=== PATIENT | male | born 1945 | race Caucasian/White ===

== ENCOUNTER → 2018-04-08 11:44 | Outpatient (CLI) | payer MEDICARE, SELFPAY ==
[2018-04-08 11:31] VITALS: BMI 26.4
[2018-04-08 13:27] LABS: Cholesterol 140 mg/dL (200); High Density Lipoprotein 55 mg/dL; Triglycerides 72 mg/dL; Very Low Density Lipoprotein 14 mg/dL (5-40)
== END ==
PROVIDERS: PCP Family Medicine; Visit Provider Family Medicine
DX: E78.5 Hyperlipidemia, unspecified (principal)
CPT/HCPCS: 36415; 80061

== ENCOUNTER → 2018-05-13 08:24 | Outpatient (CLI) | payer MEDICARE, SELFPAY ==
[2018-05-12 15:32] VITALS: BMI 26.7
--- NOTE | 2018-05-12 16:00 | LES_PTH ---
PATIENT: TEVIN BOGGS LOC: [facility] U#:[id number] AGE/SX: 79/M ROOM: RE05/13/[address]: Dr. Jaret Arora DO : 1945 BED: DIS: SPEC #: [id number] RECD: 05/13/18 11:59 STATUS: NICOLASA CARMEN #: [id number] DANILO: 05/12/18 16:[address]: Jaret Arora DEPT: SURGICAL PATHOLOGY RECD BY: Heath Torres Tissues: Skin of forearm, NOS Procedures: Surgery Specimen Level IV HEADER OPERATION: Not noted PRE-OP DIAGNOSIS: Benign neoplasm skin right forearm TISSUE SUBMITTED: Right forearm MICROSCOPIC DIAGNOSIS Right forearm lesion, shave biopsy: Actinic keratosis with mild atypia and with focal ulceration, associated inflammation and granulation tissue reaction. Solar elastosis. Negative for malignancy. SJ:audrey 05/14/18 COMMENT Case has been reviewed in consultation with Dr. Moon who concurs with the above diagnosis. IDC:AM MICROSCOPIC DESCRIPTION Slides are reviewed. GROSS DESCRIPTION Received is one container labeled with the patient's name and not further designated. The specimen consists of a disc of light hackett shaved skin measuring 0.9 x 0.6 x 0.2 cm. The cutaneous surface displays a hyperpigmented lesion measuring 0.5 cm in greatest dimension. The specimen is inked, bisected and totally submitted in one cassette. / LUCILLE:audrey 05/13/18 TC:5 CPT: 62609
== END ==
PROVIDERS: PCP Family Medicine; Visit Provider Family Medicine
DX: D23.62 Other benign neoplasm of skin of left upper limb, including shoulder (principal)
CPT/HCPCS: 88305

== ENCOUNTER → 2018-10-20 10:12 | Outpatient (CLI) | payer MEDICARE, SELFPAY ==
[2018-10-20 09:44] VITALS: BMI 26.7
[2018-10-20 12:41] LABS: Absolute Lymphocyte Count 1.74 X10^3/uL (0.83-4.51); Absolute Neutrophil Count 2.7 X10^3/uL (2.0-7.7); Basophil# 0.04 X10^3/uL; Basophil% 0.8 % (0-1); Eosinophil# 0.07 X10^3/uL; Eosinophils% 1.4 % (0-5); Hematocrit 47.6 % (40-54); Hemoglobin 15.6 g/dL (13.0-16.5); Lymphocyte # 1.74 X10^3/ul (4.0); Lymphocyte % 33.9 % (19-41); Mean Corp Hgb Conc 32.8 g/dL (32-36); Mean Corpuscular Hgb 30.7 pg (27.0-32.0); Mean Corpuscular Volume 93.7 fL (80-94); Mean Platelet Vol. 11.9 fl (6.2-12.0); Monocyte# 0.58 X10^3/uL; Monocyte% 11.3 % (0-10); NRBC Flagged by Analyzer 0 % (0-5); Neutrophil # 2.68 X10^3/uL (2.7-7.7); Platelet Count 155 K/mm3 (150-450); RBC Distribution Width CV 12.4 % (11.6-14.6); RBC Distribution Width SD 42.7 fl (35.1-43.9); Red Blood Count 5.08 M/mm3 (4.6-6.2); White Blood Count 5.1 K/mm3 (4.4-11.0)
[2018-10-20 13:19] LABS: ALB/GLOB Ratio 1.3 RATIO (0.9-2.4); AST(SGOT) 21 U/L (15-37); Alanine Aminotransfer ALT/SGPT 42 U/L (16-61); Albumin, Serum 3.8 g/dL (3.2-5.0); Alkaline Phosphatase 77 U/L (45-117); Anion Gap 4 (5-15); BUN 17 mg/dL (7-18); BUN/Creat Ratio 18.1 RATIO (10-20); Calcium,Total 8.5 mg/dL (8.5-10.1); Chloride 107 mmol/L (98-107); Cholesterol 146 mg/dL (200); Creatinine, Serum 0.94 mg/dL (0.70-1.30); EST Glomerular Filtration Rate 84 mL/min (>60); Est Glom Filt Rate - Afr Amer 102 mL/min (>60); Glucose 94 mg/dL (74-106); High Density Lipoprotein 62 mg/dL; Potassium 4.8 mmol/L (3.5-5.1); Protein, Total 6.8 g/dL (6.4-8.2); Sodium Level 140 mmol/L (136-145); Triglycerides 44 mg/dL; Very Low Density Lipoprotein 9 mg/dL (5-40)
== END ==
PROVIDERS: PCP Family Medicine; Visit Provider Family Medicine
DX: E78.2 Mixed hyperlipidemia (principal); R23.8 Other skin changes
CPT/HCPCS: 36415; 80053; 80061; 85025

== ENCOUNTER → 2019-04-20 09:55 | Outpatient (CLI) | payer MEDICARE, SELFPAY ==
[2019-04-20 09:47] VITALS: BMI 26.7
[2019-04-20 12:51] LABS: Cholesterol 151 mg/dL (200); High Density Lipoprotein 57 mg/dL; Triglycerides 60 mg/dL; Very Low Density Lipoprotein 12 mg/dL (5-40)
== END ==
PROVIDERS: PCP Family Medicine; Referring Provider Family Medicine; Visit Provider Family Medicine
DX: E78.2 Mixed hyperlipidemia (principal)
CPT/HCPCS: 36415; 80061

== ENCOUNTER → 2019-10-19 10:04 | Outpatient (CLI) | payer MEDICARE, SELFPAY ==
[2019-10-19 09:36] VITALS: BMI 26.7
[2019-10-19 12:22] LABS: ALB/GLOB Ratio 1.3 RATIO (0.9-2.4); AST(SGOT) 23 U/L (15-37); Alanine Aminotransfer ALT/SGPT 37 U/L (16-61); Albumin, Serum 3.9 g/dL (3.2-5.0); Alkaline Phosphatase 79 U/L (45-117); Anion Gap 2 (5-15); BUN 15 mg/dL (7-18); BUN/Creat Ratio 16.1 RATIO (10-20); Calcium,Total 8.6 mg/dL (8.5-10.1); Chloride 106 mmol/L (98-107); Cholesterol 161 mg/dL (200); Creatinine, Serum 0.93 mg/dL (0.70-1.30); EST Glomerular Filtration Rate 85 mL/min (>60); Est Glom Filt Rate - Afr Amer 102 mL/min (>60); Globulin 3.1 g/dL (2.2-4.2); Glucose 93 mg/dL (74-106); High Density Lipoprotein 60 mg/dL; Potassium 5.3 mmol/L (3.5-5.1); Sodium Level 140 mmol/L (136-145); Triglycerides 71 mg/dL; Very Low Density Lipoprotein 14 mg/dL (5-40)
== END ==
PROVIDERS: PCP Family Medicine; Referring Provider Family Medicine; Visit Provider Family Medicine
DX: E78.5 Hyperlipidemia, unspecified (principal)
CPT/HCPCS: 36415; 80053; 80061

== ENCOUNTER → 2019-11-15 13:08 | Outpatient (CLI) | payer MEDICARE, SELFPAY ==
--- NOTE | 2019-11-15 11:30 | TISS_PTH ---
PATIENT: TEVIN BOGGS LOC: [facility] U#:[id number] AGE/SX: 79/M ROOM: RE11/15/[address]: Dr. Jaret Arora DO : 1945 BED: DIS: SPEC #: [id number] RECD: 11/15/19 15:01 STATUS: NICOLASA CARMEN #: [id number] DANILO: 11/15/19 11:[address]: Jaret Arora DEPT: SURGICAL PATHOLOGY RECD BY: Yamile Murphy Tissues: A - Skin of upper extremity and shoulder B - Skin of forearm, NOS Procedures: Surgery Specimen Level IV HEADER OPERATION: Biopsy PRE-OP DIAGNOSIS: Basal cell carcinoma TISSUE SUBMITTED: A - Left shoulder, B - Right forearm MICROSCOPIC DIAGNOSIS A. Left shoulder lesion, shave biopsy: Basal cell carcinoma with superficial ulceration and associated inflammation. B. Right forearm lesion, shave biopsy: Basal cell carcinoma with superficial ulceration and associated inflammation. SJ:audrey 11/17/19 MICROSCOPIC DESCRIPTION Slides are reviewed. GROSS DESCRIPTION A - Received in fixative is one container labeled with the patient's name and designated left shoulder. The specimen consists of a light hackett shave biopsy of skin measuring 1 x 0.8 x 0.2 cm. The specimen is inked, serially sectioned and totally submitted in one cassette. B - Received in fixative is one container labeled with the patient's name and designated right forearm. The specimen consists of a light hackett shave biopsy of skin measuring 0.6 x 0.5 x 0.2 cm. The specimen is inked, bisected and totally submitted in one cassette. / AM:audrey 11/15/29 TC:0 [facility]: [id number] x2
[2019-11-15 11:31] VITALS: BMI 26.7
== END ==
PROVIDERS: PCP Family Medicine; Referring Provider Family Medicine; Visit Provider Family Medicine
DX: C44.619 Basal cell carcinoma of skin of left upper limb, including shoulder (principal)
CPT/HCPCS: 88305

== ENCOUNTER → 2020-04-18 09:55 | Outpatient (CLI) | payer MEDICARE, SELFPAY ==
[2020-01-18 10:02] VITALS: BMI 26.3
--- NOTE | 2020-04-18 10:00 | LES_PTH ---
PATIENT: TEVIN BOGGS LOC: [facility] U#:[id number] AGE/SX: 79/M ROOM: RE04/18/[address]: Dr. Jaret Arora DO : 1945 BED: DIS: SPEC #: [id number] RECD: 04/18/20 15:03 STATUS: NICOLASA CARMEN #: [id number] DANILO: 04/18/20 10:[address]: Jaret Arora DEPT: SURGICAL PATHOLOGY RECD BY: Génesis Padilla Tissues: Skin of neck, NOS Procedures: Surgery Specimen Level IV HEADER OPERATION: Excise skin lesion PRE-OP DIAGNOSIS: Neck skin lesions TISSUE SUBMITTED: Neck skin lesions MICROSCOPIC DIAGNOSIS Neck lesion, biopsy: Basal cell carcinoma with superficial ulceration and associated inflammation (0.8 cm in greatest dimension). Solar elastosis. See comment. HARPER:audrey 04/20/2020 COMMENT The tumor is present at the deep resection of the specimen. MICROSCOPIC DESCRIPTION Slides are reviewed. GROSS DESCRIPTION Received in fixative is one container labeled with the patient's name and designated neck. The specimen consists of a piece of hackett-white skin measuring 0.9 x 0.8 x 0.1 cm. The skin surface shows an area of ulceration. The specimen is inked and submitted entirely in one cassette. It will be serially sectioned at the time of embedding. / SJ:rg 04/19/2020 TC:0 CPT: 95097
[2020-04-18 12:24] LABS: Cholesterol 168 mg/dL (200); High Density Lipoprotein 63 mg/dL; Triglycerides 55 mg/dL; Very Low Density Lipoprotein 11 mg/dL (5-40)
== END ==
PROVIDERS: PCP Family Medicine; Referring Provider Family Medicine; Visit Provider Family Medicine
DX: E78.5 Hyperlipidemia, unspecified (principal); L98.9 Disorder of the skin and subcutaneous tissue, unspecified
CPT/HCPCS: 36415; 80061; 88305

== ENCOUNTER → 2021-01-17 10:35 | Outpatient (CLI) | payer MEDICARE, SELFPAY ==
[2021-01-17 12:33] LABS: ALB/GLOB Ratio 1.3 RATIO (0.9-2.4); AST(SGOT) 22 U/L (15-37); Alanine Aminotransfer ALT/SGPT 35 U/L (16-61); Albumin, Serum 3.8 g/dL (3.2-5.0); Alkaline Phosphatase 76 U/L (45-117); Anion Gap 4 (5-15); BUN 20 mg/dL (7-18); BUN/Creat Ratio 21.3 RATIO (10-20); Chloride 106 mmol/L (98-107); Cholesterol 143 mg/dL (200); Creatinine, Serum 0.94 mg/dL (0.70-1.30); EST Glomerular Filtration Rate 84 mL/min (>60); Est Glom Filt Rate - Afr Amer 101 mL/min (>60); Glucose 101 mg/dL (74-106); High Density Lipoprotein 61 mg/dL; Potassium 4.4 mmol/L (3.5-5.1); Protein, Total 6.8 g/dL (6.4-8.2); Sodium Level 140 mmol/L (136-145); Triglycerides 54 mg/dL; Very Low Density Lipoprotein 11 mg/dL (5-40)
== END ==
PROVIDERS: PCP Family Medicine; Referring Provider Family Medicine; Visit Provider Family Medicine
DX: E78.2 Mixed hyperlipidemia (principal)
CPT/HCPCS: 36415; 80053; 80061

== ENCOUNTER → 2021-02-05 11:59 | Outpatient (CLI) | payer MEDICARE, SELFPAY ==
--- NOTE | 2021-02-05 | LES_PTH ---
PATIENT: TEVIN BOGGS LOC: [facility] U#:[id number] AGE/SX: 79/M ROOM: RE02/05/[address]: Dr. Jaret Arora DO : 1945 BED: DIS: SPEC #: [id number] RECD: 02/05/21 15:11 STATUS: NICOLASA CARMEN #: [id number] DANILO: 02/05/21 00:[address]: Jaret Arora DEPT: SURGICAL PATHOLOGY RECD BY: Shan Schafer Tissues: A - Skin of back, NOS B - Skin of upper extremity and shoulder Procedures: Surgery Specimen Level IV HEADER OPERATION: Excision PRE-OP DIAGNOSIS: Skin lesion TISSUE SUBMITTED: A ? Back, B - Shoulder MICROSCOPIC DIAGNOSIS A. Skin lesion of back, shave biopsy: Basal cell carcinoma, superficial, nodular and ulcerated, incompletely excised. See comment. B. Skin lesion of shoulder, biopsy: Basal cell carcinoma. AM:audrey 02/07/2021 COMMENT A. The lesion extends to the deep portion of the biopsy. Clinical correlation is suggested. This case has been reviewed in consultation with Dr. Kelly who concurs with the above diagnosis. MICROSCOPIC DESCRIPTION Slides are reviewed. GROSS DESCRIPTION A - Received in fixative is one container labeled with the patient's name and designated back. The specimen consists of a light hackett shave biopsy of skin measuring 6 cm in diameter and 0.1 cm in thickness. The specimen is totally submitted in one cassette. B - Received in fixative is one container labeled with the patient's name and designated shoulder. The specimen consists of a light hackett shave biopsy of skin measuring 0.5 cm in diameter and 0.1 cm in thickness. The specimen is totally submitted in one cassette. / AM:audrey 02/06/21 TC:0 CPT: 71110 x2
== END ==
PROVIDERS: PCP Family Medicine; Referring Provider Family Medicine; Visit Provider Family Medicine
DX: L98.9 Disorder of the skin and subcutaneous tissue, unspecified (principal)
CPT/HCPCS: 88305

== ENCOUNTER → 2022-05-15 | Outpatient (CLI) | payer MEDICARE, SELFPAY ==
--- NOTE | 2022-05-15 | LES_PTH ---
PATIENT: TEVIN BOGGS [facility]: [facility] U#:[id number] AGE/SX: 76/M ROOM: RE05/15/[address]: Dr. Jaret Arora DO : 1945 BED: DIS: 05/15/2022 SPEC #: [id number] RECD: 05/15/22 16:34 STATUS: NICOLASA CARMEN #: [id number] DANILO: 05/15/22 00:[address]: Jaret Arora DEPT: SURGICAL PATHOLOGY RECD BY: Shan Schafer Tissues: A - Skin of arm B - Skin of back, NOS Procedures: Surgery Specimen Level IV HEADER OPERATION: Lesion removal PRE-OP DIAGNOSIS: Lesion TISSUE SUBMITTED: A ? Arm lesion, B ? Back lesion MICROSCOPIC DIAGNOSIS A. Arm lesion, shave biopsy: Atypical squamoid lesion with verrucoid features. Solar elastosis. Actinic change. B. Back lesion, shave biopsy: Basal cell carcinoma, ulcerated. See comment. AM:audrey 05/19/2022 COMMENT A. Complete excision of lesion is recommended for definitive classification. B. The lesion extends to the deep portion of the biopsy. Clinical correlation is necessary. Case has been reviewed in consultation with Dr. Kelly who concurs with the above diagnosis. IDC:SJ MICROSCOPIC DESCRIPTION Slides are reviewed. GROSS DESCRIPTION A - Received is one container labeled with the patient's name and not further designated. The specimen consists of a light hackett shave biopsy of skin measuring 0.8 cm in diameter and <0.1 cm in thickness. The specimen is bisected and totally submitted in one cassette. B - Received is one container labeled with the patient's name and not further designated. The specimen consists of a light hackett shave biopsy of skin measuring 0.8 cm in diameter and <0.1 cm in thickness. The specimen is bisected and totally submitted in one cassette. / AM:audrey 05/16/2022 TC:? CPT: 23908 x2
[2022-05-15 13:01] LABS: ALB/GLOB Ratio 1.2 RATIO (0.9-2.4); AST(SGOT) 26 U/L (15-37); Alanine Aminotransfer ALT/SGPT 43 U/L (16-61); Albumin, Serum 3.7 g/dL (3.2-5.0); Alkaline Phosphatase 86 U/L (45-117); Anion Gap 6 (5-15); BUN 18 mg/dL (7-18); BUN/Creat Ratio 20.1 RATIO (10-20); Calcium,Total 8.8 mg/dL (8.5-10.1); Chloride 104 mmol/L (98-107); Cholesterol 138 mg/dL (200); EST Glomerular Filtration Rate 88 mL/min (>60); Est Glom Filt Rate - Afr Amer 106 mL/min (>60); Globulin 3.2 g/dL (2.2-4.2); Glucose 93 mg/dL (74-106); High Density Lipoprotein 53 mg/dL; Potassium 4.2 mmol/L (3.5-5.1); Protein, Total 6.9 g/dL (6.4-8.2); Sodium Level 138 mmol/L (136-145); Triglycerides 44 mg/dL; Very Low Density Lipoprotein 9 mg/dL (5-40)
== END | disposition home or self-care (01) ==
LOC: BIMLAB 09:34
PROVIDERS: PCP Family Medicine; Visit Provider Family Medicine
DX: E78.5 Hyperlipidemia, unspecified (principal)
CPT/HCPCS: 36415; 80053; 80061; 88305

== ENCOUNTER → 2022-12-31 | Outpatient (CLI) | payer MEDICARE, SELFPAY ==
--- NOTE | 2022-12-31 10:30 | LES_PTH ---
PATIENT: TEVIN BOGGS LOC: [facility] U#:[id number] AGE/SX: 77/M ROOM: RE12/31/[address]: Dr. Jaret Arora DO : 1945 BED: DIS: 12/31/2022 SPEC #: [id number] RECD: 12/31/22 12:29 STATUS: NICOLASA CARMEN #: [id number] DANILO: 12/31/22 10:[address]: Jaret Arora DEPT: SURGICAL PATHOLOGY RECD BY: Génesis Padilla Tissues: A - Skin of back, NOS B - Skin of back, NOS Procedures: Surgery Specimen Level IV HEADER OPERATION: Skin biopsy PRE-OP DIAGNOSIS: Suspicious lesion TISSUE SUBMITTED: A - Mid lower back, B - Right lower back MICROSCOPIC DIAGNOSIS A. Skin lesion of mid low back, biopsy: Basal cell carcinoma, superficial nodular, multifocal, narrowly excised. See comment. B. Skin lesion of right low back, biopsy: Basal cell carcinoma, superficial ulcerated and multifocal, incompletely excised. See comment. AM:audrey 01/01/2023 COMMENT A. The lesion extends to <1 millimeters of the peripheral margin. Clinical correlation is suggested. B. The lesion extends to the deep and one peripheral margin of the biopsy. Clinical correlation is suggested. MICROSCOPIC DESCRIPTION Slides are reviewed. GROSS DESCRIPTION A - Received in fixative is one container labeled with the patient's name and designated mid lower back. The specimen consists of an ellipse of light hackett excised skin measuring 2.6 x 0.9 cm and a depth of excision measuring 0.5 cm. The specimen is inked, serially sectioned and totally submitted in one cassette. B - Received in fixative is one container labeled with the patient's name and designated right lower back. The specimen consists of a triangular fragment of light hackett skin measuring 1.5 x 1.0 x 0.1 cm. The specimen is inked, serially sectioned and totally submitted in one cassette. / AM:audrey 12/31/2022 TC:0 [facility]: [id number] x2
== END | disposition home or self-care (01) ==
LOC: BIMLAB 11:21 → LABSPEC 11:36
PROVIDERS: PCP Family Medicine; Referring Provider Family Medicine; Visit Provider Family Medicine
DX: L98.9 Disorder of the skin and subcutaneous tissue, unspecified (principal)
CPT/HCPCS: 88305

== ENCOUNTER → 2023-05-27 | Outpatient (CLI) | payer MEDICARE, SELFPAY ==
[2023-05-27 13:13] LABS: ALB/GLOB Ratio 1.3 RATIO (0.9-2.4); AST(SGOT) 23 U/L (15-37); Alanine Aminotransfer ALT/SGPT 38 U/L (16-61); Albumin, Serum 3.9 g/dL (3.2-5.0); Alkaline Phosphatase 81 U/L (45-117); Anion Gap 2 (5-15); BUN 17 mg/dL (7-18); BUN/Creat Ratio 18.5 RATIO (10-20); Calcium,Total 9.2 mg/dL (8.5-10.1); Chloride 108 mmol/L (98-107); Cholesterol 157 mg/dL (200); Creatinine, Serum 0.92 mg/dL (0.70-1.30); EST Glomerular Filtration Rate 86 mL/min (>60); Est Glom Filt Rate - Afr Amer 103 mL/min (>60); Globulin 2.9 g/dL (2.2-4.2); Glucose 99 mg/dL (74-106); High Density Lipoprotein 59 mg/dL; Potassium 5.7 mmol/L (3.5-5.1); Protein, Total 6.8 g/dL (6.4-8.2); Sodium Level 140 mmol/L (136-145); Triglycerides 76 mg/dL; Very Low Density Lipoprotein 15 mg/dL (5-40)
== END | disposition home or self-care (01) ==
LOC: BIMLAB 09:50
PROVIDERS: PCP Family Medicine; Referring Provider Family Medicine; Visit Provider Family Medicine
DX: E78.2 Mixed hyperlipidemia (principal)
CPT/HCPCS: 36415; 80053; 80061

== ENCOUNTER → 2024-06-21 | Outpatient (CLI) | payer MEDICARE, SELFPAY ==
[2024-06-21 13:19] LABS: ALB/GLOB Ratio 1.8 RATIO (0.9-2.4); AST(SGOT) 30 U/L (<=37); Alanine Aminotransfer ALT/SGPT 36 U/L (<=46); Albumin, Serum 4.2 g/dL (3.4-4.8); Alkaline Phosphatase 82 U/L (40-129); Anion Gap 9 (5-15); BUN 24 mg/dL (4-19); BUN/Creat Ratio 22.4 RATIO (10-20); Calcium,Total 9.5 mg/dL (7.6-11.0); Chloride 104 mmol/L (98-108); Cholesterol 138 mg/dL (<=200); Creatinine, Serum 1.07 mg/dL (0.70-1.20); EST Glomerular Filtration Rate 72 (>60); Globulin 2.4 g/dL (2.2-4.2); Glucose 93 mg/dL (70-99); High Density Lipoprotein 55 mg/dL; Low Density Lipoprotein Calc. 75 mg/dL; Potassium 4.7 mmol/L (3.3-5.1); Protein, Total 6.5 g/dL (5.9-8.4); Sodium Level 140 mmol/L (133-145); Total Bilirubin 1.19 mg/dL (0.00-1.30); Triglycerides 38 mg/dL; Very Low Density Lipoprotein 8 mg/dL (5-40)
== END | disposition home or self-care (01) ==
LOC: BIMLAB 10:53
PROVIDERS: PCP Family Medicine; Visit Provider Family Medicine
DX: I10 Essential (primary) hypertension (principal); E78.5 Hyperlipidemia, unspecified
CPT/HCPCS: 36415; 80053; 80061